=== PATIENT | male | born 1945 | race Caucasian/White ===

== ENCOUNTER 2019-07-27 06:24 | Emergency (ER) | payer OTHER ==
[~2019-07-27] VITALS: Ht 175.3 cm; Wt 61.2 kg
--- NOTE | 2019-07-27 06:24 | NUR ---
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 -BLOOD THINNERS, PT TO BED 2, NOTED WITH EPITAXIS, SLIGHT BLEEDING NOTED, -SOB, -CP, NOTED WITH ELEVATED BP. PLACED ON MONITOR, PENDING ER PROVIDER KEELY
[2019-07-27] MEDS ORDERED: OXYMETAZOLINE HCL NASAL SPRAY 30 ML BOTTLE NS ONE ×2 (06:30→06:32)
[2019-07-27] MEDS ORDERED: SILVER NITRATE APPLICATOR 1 EA BOX TP ONE (06:30)
[2019-07-27] MEDS ORDERED: SILVER NITRATE APPLICATOR 1 EA BOX ONE (06:36)
[2019-07-27] MEDS ORDERED: CLONIDINE HCL 0.1 MG TABLET ONE (06:54)
[2019-07-27] MEDS ORDERED: CLONIDINE HCL 0.1 MG TABLET PO ONE (07:00)
--- NOTE | 2019-07-27 07:04 | NUR ---
EKG MACHINE NOT WORKING
--- NOTE | 2019-07-27 07:04 | NUR ---
REFUSED TO TAKE CLONIDINE, PT DOES NOT BELIEVE IN MEDICATIONS
[2019-07-27 07:13] LABS: BASOPHILS # (AUTO) 0.1 /CMM (0.0-0.2); BASOPHILS % (AUTO) 1.2 % (0.0-2.0); EOSINOPHILS % (AUTO) 1.5 % (0.0-6.0); HEMATOCRIT 43 % (39-51); HEMOGLOBIN 13.8 g/dL (13.5-17.5); LYMPHOCYTES # (AUTO) 1.7 /CMM (0.8-4.8); LYMPHOCYTES % (AUTO) 31.6 % (20.0-44.0); MEAN CORPUSCULAR HGB CONC 32 g/dl (31.0-36.0); MEAN CORPUSCULAR VOLUME 89 fL (80-96); MONOCYTES # (AUTO) 0.4 /CMM (0.1-1.30); NEUTROPHILS # (AUTO) 3.1 /CMM (1.8-8.9); NEUTROPHILS % (AUTO) 58.7 % (43.0-81.0); PLATELET COUNT (AUTO) 177 /CMM (150-450); RED BLOOD CELL COUNT(AUTO) 4.76 MIL/uL (4.5-6.0); WHITE BLOOD COUNT (AUTO) 5.3 K/uL (4.3-11.0)
[2019-07-27 07:25] LABS: CALCIUM, SERUM 8.6 mg/dL (8.5-10.1); CARBON DIOXIDE 30 mmol/L (21-32); CHLORIDE 102 mmol/L (98-107); CREATININE 0.9 mg/dL (0.6-1.3); GLUCOSE 129 mg/dL (74-106); SODIUM SERUM 140 mmol/L (136-145); UREA NITROGEN, BLOOD 19 mg/dL (7-18)
--- NOTE | 2019-07-27 07:53 | NUR ---
PATIENT'S NOSE BLEEDING HAS STOPPED.
--- NOTE | 2019-07-27 08:10 | NUR ---
PATIENT A/OX4, BLEEDING CEASED. BREATHING EVEN AND UNLABORED, NO SOB NOTED. IV removed. Catheter intact and site benign. Pressure and 4x4 applied to site. No bleeding noted.Patient discharged to home in stable condition. Written and verbal after care instructions given. Patient verbalizes understanding of instruction.
[2019-07-27 08:11] VITALS: BP 158/100
== END 2019-07-27 08:12 | disposition home or self-care (01) ==
LOC: ER 06:26
DX: R04.0 Epistaxis (principal); I10 Essential (primary) hypertension; R94.31 Abnormal electrocardiogram [ECG] [EKG]
CPT/HCPCS: 36415; 80048-TC; 84484-TC; 85025-TC; 85730-TC